=== PATIENT | male | born 1960 | race Two or more races ===

== ENCOUNTER 2023-08-16 06:15 | Day surgery (SDC) | payer OTHER ==
[~2023-08-16] VITALS: Ht 172.7 cm; Wt 81.6 kg
[2023-08-16] MEDS ORDERED: LIDOCAINE 2% JELLY 11ml (GLYDO) ONE (06:30)
[2023-08-16] MEDS ORDERED: SUCCINYLCHOLINE CHLORIDE 20 MG/ML 10ML VIAL IV ONE (06:56)
[2023-08-16] MEDS ORDERED: ROCURONIUM 10MG/ML 10ML VIAL IV ONE (06:56)
[2023-08-16] MEDS ORDERED: fentaNYL CITRATE 100 MCG/2 ML VL ONE (06:59)
[2023-08-16] MEDS ORDERED: PROPOFOL 10 MG/ML 20 ML IV ONE (06:59)
[2023-08-16] MEDS ORDERED: SODIUM CHLORIDE LOCK 20 ML ONE (06:59)
[2023-08-16] MEDS ORDERED: MIDAZOLAM HCL 2MG/2ML 2ml VIAL (1mg/ml) ONE (06:59)
[2023-08-16] MEDS ORDERED: KETAMINE 50mg/ML 1ml syringe ONE ×2 (06:59→07:52)
[2023-08-16] MEDS ORDERED: ONDANSETRON HCL 4 MG/2 ML VIAL ONE (06:59)
[2023-08-16] MEDS ORDERED: ceFAZolin 2 GM/D5W100ml 100 ML IV ONE (07:14)
[2023-08-16] MEDS ORDERED: MORPHINE SULFATE INJ 2 MG/ml SYRG IV PRN (07:30)
[2023-08-16] MEDS ORDERED: METOCLOPRAMIDE HCL 5MG/ml INJ 2ml VIAL IV PRN (07:30)
[2023-08-16] MEDS ORDERED: ACCU-CHEK COMFORT CURVE STRIP VI ONE (07:30)
[2023-08-16] MEDS ORDERED: HYDROmorphone HCL 2 MG/ML VL/or syr IV PRN ×2 (07:30)
[2023-08-16] MEDS: BUPIVACAINE 0.25% INJ 50ML VIAL ONE (07:45)
[2023-08-16] MEDS: LIDOCAINE HCL (LOCAL ANESTH.) 0.5 % 50ML MDV IJ ONE (07:45)
[2023-08-16 08:24] VITALS: PULSE 77; RESP 10; TEMP 97.8; O2SAT 99
[2023-08-16 09:00] VITALS: BP 126/75; PULSE 60; RESP 19; O2SAT 97
== END 2023-08-16 09:30 | disposition home or self-care (01) ==
LOC: EEVIPCON → SUR 06:15
PROVIDERS: ATTEND Student in an Organized Health Care Education/Training Program
DX: M76.62 Achilles tendinitis, left leg (principal); I10 Essential (primary) hypertension; E11.9 Type 2 diabetes mellitus without complications
CPT/HCPCS: 27650; 82962; 88305; J0330; J2250; J2405; J2704; J3010; J3490